=== PATIENT | male | born 1960 | race Caucasian/White ===

== ENCOUNTER 2021-04-09 13:43 | Emergency (ER) | payer BC ==
[~2021-04-09] VITALS: Ht 185.4 cm; Wt 124.1 kg
[2021-04-09] MEDS ORDERED: MORPHINE 2 MG/ML 1ML VIAL (J2270) IV ONE (15:20)
[2021-04-09] MEDS ORDERED: LISI10TA22 PO (15:45)
[2021-04-09] MEDS ORDERED: ALLO300T2 PO (15:45)
[2021-04-09] MEDS ORDERED: HYDR-3713 PO (15:45)
[2021-04-09] MEDS ORDERED: GLIM4TAB5 PO (15:46)
[2021-04-09] MEDS ORDERED: STEG15TA PO (15:46)
[2021-04-09] MEDS ORDERED: MICR1TAB5 PO (15:46)
[2021-04-09] MEDS ORDERED: METF10004 PO (15:46)
[2021-04-09] MEDS ORDERED: PIOG1TAB55 PO (15:46)
[2021-04-09 15:59] VITALS: BP 126/69
== END 2021-04-09 16:00 | disposition home or self-care (01) ==
LOC: M ED 13:43
DX: G89.18 Other acute postprocedural pain (principal); E11.9 Type 2 diabetes mellitus without complications
CPT/HCPCS: 96374; 99284; J2270